=== PATIENT | female | born 1995 | race Caucasian/White ===

== ENCOUNTER 2018-05-18 08:09 | Emergency (ER) | payer SELFPAY ==
[~2018-05-18] VITALS: Ht 152.4 cm; Wt 65.8 kg
--- NOTE | 2018-05-18 09:33 | Diagnostic Imaging Report ---
EXAM: HAND 3+ VIEWS RIGHT DATE: 05/18/2018 12:00 AM INDICATION: Swelling, no trauma COMPARISON: None FINDINGS: No fracture, subluxation, osseous lesion, or radiopaque foreign body. Dorsal soft tissue swelling. IMPRESSION: Soft tissue swelling with no acute osseous findings. Correlation recommended. Signed by: Dr. Brandon Kuhn MD on 05/18/2018 9:30 AM
[2018-05-18 10:01] VITALS: BP 123/88
== END 2018-05-18 10:24 | disposition home or self-care (01) ==
LOC: ER 08:09
DX: L03.113 Cellulitis of right upper limb (principal); M79.641 Pain in right hand; M79.89 Other specified soft tissue disorders
CPT/HCPCS: 99283